=== PATIENT | female | born 1955 | race Caucasian/White ===

== ENCOUNTER → 2021-10-27 | Outpatient (CLI) | payer MEDICARE, OTHER ==
[~2021-10-27] MED LIST: AMIT25TA9 PO; ASPI-266 PO; MULT-974 PO
--- NOTE | 2021-10-27 11:09 | Diagnostic Imaging Report ---
PROCEDURE: US Renal Bilateral. TECHNIQUE: Multiple Real-time grayscale images were obtained over the kidneys in various projections bilaterally. INDICATION: Chronic kidney disease. FINDINGS: The right kidney measures 8.8 x 3.4 x 3.9 cm and the left kidney measures 7.6 x 3.8 x 4.3 cm. The cortical thickness and echogenicity are normal. No calculi are seen. There is no hydronephrosis. The prevoid bladder volume is 221 mL. No post void residual bladder volume is detected. Bilateral ureteral jets were visualized. IMPRESSION: Unremarkable renal ultrasound. Dictated by: Dictated on workstation # [id number]
== END ==
LOC: RAD 09:18
PROVIDERS: ATTEND Internal Medicine Nephrology
DX: N18.31 Chronic kidney disease, stage 3a (principal); E83.9 Disorder of mineral metabolism, unspecified; B18.2 Chronic viral hepatitis C; Z72.0 Tobacco use
CPT/HCPCS: 76770